=== PATIENT | male | born 1980 | race Hispanic/Latino ===

== ENCOUNTER 2023-04-01 08:30 | Emergency (ER) | payer OTHER ==
[~2023-04-01] VITALS: Ht 185.4 cm; Wt 117.9 kg
[2023-04-01 08:36] VITALS: BP 143/89
== END 2023-04-01 11:36 | disposition left against medical advice (07) ==
LOC: EDH 08:30
DX: Z53.21 Procedure and treatment not carried out due to patient leaving prior to being seen by health care provider (principal); V89.2XXA Person injured in unspecified motor-vehicle accident, traffic, initial encounter; Y93.89 Activity, other specified; Y92.89 Other specified places as the place of occurrence of the external cause; Y99.8 Other external cause status
CPT/HCPCS: 99281